=== PATIENT | male | born 1965 | race Caucasian/White ===

== ENCOUNTER → 2020-02-14 | Day surgery (SDC) | payer OTHER ==
[~2020-02-14] MED LIST: AMLODIPINE BESY10 MG PO; ASPIRIN CHEWABL81 MG PO; COQ1050 MG PO; CRESTOR10 M1 PO; CRESTOR20 MG PO; DIOVAN160 MG PO; HCTZ12.5 MG PO; HCTZ25 MG PO; NITROGLYCERIN0.4 MG SL; OLMESARTAN MEDO40 MG PO; OLMSRTN-AMLDPN1 EAC2 PO; PERCOCET 5-3251 EACH PO; VITAMIN D350 MCG PO; ZOCOR40 MG PO
== END | disposition home or self-care (01) ==
LOC: FAS 07:03
DX: Z12.11 Encounter for screening for malignant neoplasm of colon (principal); D12.3 Benign neoplasm of transverse colon; K58.9 Irritable bowel syndrome, unspecified; I10 Essential (primary) hypertension; G47.30 Sleep apnea, unspecified; Z86.010 Personal history of colon polyps; Z87.891 Personal history of nicotine dependence; Z79.82 Long term (current) use of aspirin; Z79.899 Other long term (current) drug therapy
CPT/HCPCS: J1610; J2250; J2704; J7120

== ENCOUNTER → 2020-02-21 | Day surgery (SDC) | payer OTHER | END | disposition home or self-care (01) | LOC: FAS 06:00 | DX: S83.232A Complex tear of medial meniscus, current injury, left knee, initial encounter (principal); M79.4 Hypertrophy of (infrapatellar) fat pad; M25.862 Other specified joint disorders, left knee; M17.12 Unilateral primary osteoarthritis, left knee; G47.30 Sleep apnea, unspecified; I10 Essential (primary) hypertension; Z79.82 Long term (current) use of aspirin; Z79.899 Other long term (current) drug therapy; X58.XXXA Exposure to other specified factors, initial encounter | CPT/HCPCS: J1170; J2250; J2405; J2704; J3010; J7120 ==

== ENCOUNTER 2020-07-21 18:00 | Emergency (ER) | payer OTHER ==
[2020-07-21 19:44] LABS: BASOPHIL 0.8 % (0-2); EOSINOPHIL 1.9 % (0-5); HCT 43.6 % (42.0-52.0); LYMPHOCYTE 37.2 % (15-48); MCH 29.5 pg (25.0-31.0); MCHC 34.4 g/dL (32.0-36.0); MCV 85.7 fL (78.0-100.0); MONOCYTE 9.3 % (0-12); MPV 9.4 fL (6.0-9.5); NEUTROPHIL 50.6 % (41-80); NRBC 0; PLT 293 K/uL (150-400); RBC 5.09 M/uL (4.70-6.00); RDW 13.1 % (11.5-14.0); WBC 6.4 K/uL (4.0-10.5)
[2020-07-21 20:07] LABS: LACTIC ACID 1.7 mmol/L (0.4-1.9)
[2020-07-21 20:10] LABS: CREATININE 0.73 mg/dL (0.67-1.17)
[2020-07-21 20:11] LABS: ALBUMIN 3.8 g/dL (3.4-5.0); BILIRUBIN - TOTAL 0.4 mg/dL (0.2-1.0); GLOBULIN (CALCULATION) 3.4 g/dL; POTASSIUM 3.7 mmol/L (3.5-5.1); TOTAL PROTEIN 7.2 g/dL (6.4-8.2)
[2020-07-21 20:19] LABS: BILIRUBIN NEGATIVE (NEGATIVE); BLOOD NEGATIVE Ery/uL (NEGATIVE); CLARITY CLEAR (CLEAR); COLOR YELLOW (YELLOW); GLUCOSE (U) NORMAL (NORMAL); LEUKOCYTES NEGATIVE Leu/uL (NEGATIVE); NITRITE NEGATIVE (NEGATIVE); PROTEIN TRACE (LOW) mg/dL (NEGATIVE); pH 6.5 (5.0-9.0)
== END 2020-07-21 22:29 | disposition home or self-care (01) ==
LOC: FER 18:00
PROVIDERS: Emergency Medicine
DX: R10.9 Unspecified abdominal pain (principal); I10 Essential (primary) hypertension
CPT/HCPCS: 36415; 80053; 81003; 82150; 83605; 83690; 85025; J1885; J2270; J2405; J7030; Q9967